=== PATIENT | male | born 1985 | race Caucasian/White ===

== ENCOUNTER → 2017-04-17 18:47 | Outpatient (CLI) | payer MEDICAID | END | disposition home or self-care (01) | LOC: D.SLEEP 18:47 | DX: G47.33 Obstructive sleep apnea (adult) (pediatric) (principal) ==

== ENCOUNTER → 2020-03-22 06:57 | Outpatient (CLI) | payer MEDICAID | END | disposition home or self-care (01) | LOC: D.RAD 06:57 | PROVIDERS: ATTEND General Practice | DX: R13.10 Dysphagia, unspecified (principal) ==